=== PATIENT | female | born 1995 | race Caucasian/White ===

== ENCOUNTER 2017-08-25 20:25 | Emergency (ER) | payer OTHER ==
[~2017-08-25] VITALS: Ht 154.9 cm; Wt 49.9 kg
== END 2017-08-25 22:25 | disposition home or self-care (01) ==
LOC: ER 20:25
DX: T14.8XXA Other injury of unspecified body region, initial encounter (principal); V86.69XA Passenger of other special all-terrain or other off-road motor vehicle injured in nontraffic accident, initial encounter
CPT/HCPCS: 71250; 72125; 99284

== ENCOUNTER 2021-12-01 03:06 | Emergency (ER) | payer OTHER ==
[~2021-12-01] VITALS: Ht 157.5 cm; Wt 45.4 kg
[~2021-12-01 03:06] MED LIST: ALBU90OI6 INH; Augmentin 875-1 EACH PO; Prednisone20 MG PO
== END 2021-12-01 04:46 | disposition home or self-care (01) ==
LOC: ER 03:06
DX: F19.10 Other psychoactive substance abuse, uncomplicated (principal); M79.602 Pain in left arm; M79.605 Pain in left leg; M54.2 Cervicalgia; G89.29 Other chronic pain; F17.210 Nicotine dependence, cigarettes, uncomplicated; F32.A Depression, unspecified; Z79.52 Long term (current) use of systemic steroids; Z79.899 Other long term (current) drug therapy
CPT/HCPCS: J1885

== ENCOUNTER → 2024-06-25 | Outpatient (CLI) | payer OTHER | LOC: LAB 15:30 → LAB SHORT 15:30 | DX: R35.0 Frequency of micturition (principal) | CPT/HCPCS: 87086 ==

== ENCOUNTER → 2024-06-26 | Outpatient (CLI) | payer OTHER | LOC: LAB 13:38 → LAB SHORT 13:38 | DX: N39.0 Urinary tract infection, site not specified (principal) | CPT/HCPCS: 87086 ==

== ENCOUNTER → 2024-07-16 | Outpatient (CLI) | payer OTHER | END | disposition home or self-care (01) | LOC: LAB SHORT 13:30 → LAB 13:30 | DX: N39.0 Urinary tract infection, site not specified (principal) | CPT/HCPCS: 87086 ==